=== PATIENT | male | born 1990 | race Caucasian/White ===

== ENCOUNTER 2018-01-10 17:37 | Emergency (ER) | payer SELFPAY ==
[~2018-01-10] VITALS: Ht 182.9 cm; Wt 68.2 kg
[2018-01-10] MEDS: ACETAMINOPHEN 325 MG TABLET PO ONE (19:06)
[2018-01-10] MEDS: PERTUSS(ACELL),DIPH,TET VAC/PF 0.5 ML VIAL IM ONE (19:06)
[2018-01-10] MEDS: BACITRACIN 0.9 GM PACKET OINTMENT TP ONE (19:06)
[2018-01-10] MEDS: POVIDONE-IODINE 10% 15 ML SOLUTION UD TP ONE (19:06)
[2018-01-10] MEDS: LIDOCAINE HCL/PF 1% 5 ML VIAL INJ ONE (19:06)
[2018-01-10 20:12] VITALS: BP 121/64
== END 2018-01-10 20:13 | disposition home or self-care (01) ==
LOC: EMS 17:40
DX: S61.411A Laceration without foreign body of right hand, initial encounter (principal); F17.210 Nicotine dependence, cigarettes, uncomplicated; Z71.6 Tobacco abuse counseling; W25.XXXA Contact with sharp glass, initial encounter; Y93.89 Activity, other specified; Y92.89 Other specified places as the place of occurrence of the external cause; Y99.8 Other external cause status
CPT/HCPCS: 12002; 90471; 90715; 99283; 99406; J3490